=== PATIENT | female | born 1985 | race African-American/Black ===

== ENCOUNTER 2016-06-29 09:31 | Emergency (ER) | payer OTHER ==
[~2016-06-29 09:31] MED LIST: ATIVAN PO; BACTRIM DS TABL1 TA1 PO; BIRTH CONTROL; DARVOCET-N 1001 TAB PO; FIORICET1 TAB PO; FLEXERIL10 MG PO; FLOMAX0.4 MG PO; IBUPROFEN800 MG PO; KEFLEX PO; LEVAQUIN PO; LISINOPRIL PO; MAGIC MOUTHWASH PO; METROGEL-VAGINA70 GM VG; METROGEL55 GM TP; NAPROXEN PO; NO MEDICATIONS; NORCO 5/325 TAB1 TAB PO; PEN-VEE K PO; PHENERGAN PO; PYRIDIUM PO; TYLOX 5/500 CAP1 CAP PO; VISTARIL PO; VOLTAREN75 MG PO
[2016-06-29 09:51] LABS: INFLUENZA A NEG (NEG); INFLUENZA B NEG (NEG)
== END 2016-06-29 10:24 | disposition home or self-care (01) ==
LOC: SED 09:31
PROVIDERS: Emergency Medicine
DX: J01.00 Acute maxillary sinusitis, unspecified (principal); J01.20 Acute ethmoidal sinusitis, unspecified; F17.210 Nicotine dependence, cigarettes, uncomplicated
CPT/HCPCS: 87651; 87804; 99283

== ENCOUNTER 2016-07-30 10:05 | Emergency (ER) | payer OTHER ==
[2016-07-30 09:24] LABS: URINE SOURCE CLEAN CATCH
[2016-07-30 09:48] LABS: URINE APPEARANCE CLEAR; URINE BILIRUBIN NEG (NEG); URINE BLOOD TRACE (NEG); URINE COLOR YELLOW; URINE GLUCOSE NEG (NEG); URINE KETONE NEG (NEG); URINE LEUKOCYTE ESTERASE NEG (NEG); URINE NITRATE NEG (NEG); URINE PH 6.5 (5-8); URINE PROTEIN NEG (NEG); URINE UROBILINOGEN 0.2 MG/DL (NEG)
[2016-07-30 09:50] LABS: U HYALINE CASTS AUWI 0-2 /[LPF]; URINE BACTERIA AUWI NEG (NEGATIVE); URINE SQUAMOUS EPITHELIAL CELL OCC /[HPF]; UWBCS1 AUWI 0-2 (0-5)
[2016-07-30 09:53] LABS: CULTURE INDICATED? NO
[2016-08-01 02:37] LABS: CHLAMYDIA TRACH Not Detected (Not Detected); N GONOR Not Detected (Not Detected)
== END 2016-07-30 10:37 | disposition home or self-care (01) ==
LOC: CFTX 10:05
PROVIDERS: Physician Assistant
DX: N89.8 Other specified noninflammatory disorders of vagina (principal); K21.9 Gastro-esophageal reflux disease without esophagitis; M54.5 Low back pain; F17.210 Nicotine dependence, cigarettes, uncomplicated
CPT/HCPCS: 81003; 84703; 87491; 87591; 87808; 87905; 96372; 99284; J0696